=== PATIENT | male | born 1970 | race Two or more races ===

== ENCOUNTER 2024-04-07 18:16 | Emergency (ER) | payer BC, SELFPAY ==
[2024-04-07 18:21] VITALS: BP 153/93
[2024-04-07 19:00] LABS: Hematocrit 42.1 % (39.0-52.0); Hemoglobin 13.2 g/dL (13.0-18.0); Mean Corp Hgb Conc. 31.4 g/dL (33.0-37.0); Mean Corpuscular Hgb 27.8 pg (27.0-31.0); Mean Corpuscular Volume 88.8 fL (80.0-94.0); Mean Platelet Volume 11.1 fL (7.4-10.4); Platelet Count 201 10^3/uL (130-400); Red Blood Cell Count 4.74 10^6/uL (4.70-6.10); White Blood Cell Count 5.8 10^3/uL (4.8-10.8)
[2024-04-07 19:16] LABS: Troponin I < 0.012 ng/ml
[2024-04-07 19:18] LABS: % Basophils 0.9 % (0-2); % Eosinophils 4.5 % (0-6); % Immature Granulocytes 0.2 % (0-0.5); % Lymphocytes 54.6 % (20.5-51.1); % Monocytes 12.1 % (1.7-9.3); % Neutrophils 27.7 % (42.2-75.2); ALT (SGPT) 24 U/L (0-50); AST (SGOT) 23 U/L (17-59); Absolute Basophils 0.1 10^3/uL (0-0.2); Absolute Eosinophils 0.3 10^3/uL (0-0.7); Absolute Lymphocytes 3.2 10^3/uL (1.2-3.4); Absolute Monocytes 0.7 10^3/uL (0.1-0.6); Absolute Neutrophils 1.6 10^3/uL (1.4-6.5); Albumin 4.3 g/dl (3.5-5.0); Alkaline Phosphatase 62 U/L (38-126); Blood Urea Nitrogen 12 mg/dl (9-20); Calcium 9.4 mg/dl (8.4-10.2); Carbon Dioxide 25 mmol/L (22-30); Glucose 76 mg/dl (70-99); Nucleated Red Blood Cells % 0 % (-); Total Bilirubin 0.4 mg/dl (0.2-1.3); Total Protein 7.3 g/dl (6.3-8.2); eGFR > 60.00
[2024-04-07 19:47] LABS: Chloride 103 mmol/L (98-107); Sodium 136 mmol/L (135-145)
[2024-04-07 20:33] VITALS: BP 148/93
[2024-04-07 20:36] VITALS: BMI 28.7
--- NOTE | 2024-04-07 20:44 | ED.GENMED ---
History of Present Illness
General
Chief Complaint: Chest Pain
Source: patient
Exam Limitations: none
Time Seen by Provider: 04/07/24 20:21
History of Present Illness
History of Present Illness:
53yoM with a history of hyperlipidemia presenting for evaluation of chest pain. Patient reports a squeezing chest discomfort on the right upper chest for the past 2 weeks or so. Pain waxes and wanes. Pain does seem to worsen with activity. He is
also having some shortness of breath with walking up steps. Today he noticed a pins and needle sensation in his right hand which improves if he keeps his right arm elevated. He denies any shortness of breath or leg swelling. He takes naproxen for
his back which does not seem to help his chest pain. Of note, his mother unexpectedly at the age of 55. No autopsy was performed but his mother was reportedly complaining of chest pain before she . He was told by his PCP recently that
his LDL cholesterol was elevated but he does not take any medications for this. No tobacco use.
Past History
Past History
ED Past Medical History: None
ED Past Surgical History: None
Social History
Tobacco: Non-smoker
Alcohol: None
Drug: None
Personal:
Living: with family
Employment: Employed
Family History
Family History: Sudden (mother < 55)
Phy Exam
General Physical Exam
General Presentation: well appearing and no apparent distress
General age: appears stated age
General Skin: warm and dry
General Habitus: normal
General Mental: alert
ENT Exam
ENT Exam: normocephalic
Cardiovascular Exam
Cardiovascular Exam: regular rate/rhythm, no edema, no murmur and normal peripheral pulses (2+ radial and DP pulses bilaterally)
Pulmonary Exam
Pulmonary Exam: lungs clear, no respiratory distress, no rales, no crackles and no rhonchi
Neurological Exam
Neurological Exam: alert
Emily Coma Scale
Eye Opening: Spontaneous
Verbal Response: Oriented
Motor Response: Obeys Commands
GCS Total Score: 15
Skin Exam
Skin Exam: normal color and warm/dry
Psychiatric Exam
Psychiatric Exam: normal mood/affect
Scores
Heart Score for Chest Pain Patients
STEMI patient?: No
History: Moderately Suspicious
ECG: Normal
Age: >45 - <65 years
Risk Factors: 1 or 2 Risk Factors
Troponin: </= Normal Limit
Heart Score for Chest Pain Patients: 3
Heart Score Risk: 2.5% MACE over next 6 weeks
Course
Orders/Labs/Results
Orders:
Orders
04/07/24 18:17
Electrocardiogram (*1) Urgent
Reason for Study: Chest Pain
EKG- Treatment ONCE
04/07/24 18:37
Complete Blood Count/With Diff Urgent
Comprehensive Metabolic Panel Urgent
Troponin I Urgent
04/07/24 20:23
CR Chest - 2 Views Urgent
Comment:
Reason For Exam: CP
04/07/24 20:43
Cardiac Monitoring- Treatment ONCE
04/07/24 20:57
D-Dimer Urgent
Abnormal Lab Results
04/07/24
18:37
MCHC 31.4 L g/dL
(33.0-37.0)
MPV 11.1 H fL
(7.4-10.4)
Absolute Monos (auto) 0.7 H 10^3/uL
(0.1-0.6)
Neutrophils % 27.7 L %
(42.2-75.2)
Lymphocytes % 54.6 H %
(20.5-51.1)
Monocytes % 12.1 H %
(1.7-9.3)
04/07/24 18:37
04/07/24 18:37
Vital Signs
Initial and Last Documented VS:
Initial Vital Signs
Pulse Resp BP Pulse Ox
72 16 153/93 100
04/07/24 18:21 04/07/24 18:21 04/07/24 18:21 04/07/24 18:21
Last Documented Vital Signs
Pulse Resp BP Pulse Ox
51 12 107/59 100
04/07/24 21:45 04/07/24 21:45 04/07/24 21:00 04/07/24 21:15
MDM/Problems Addressed
Differential Diagnosis Includes:
53yoM here with R sided chest pain x 2 weeks. Worsens with activity. Also c/o R hand paresthesias that are positional. Hx of HLD not on medications. He is mildly hypertensive with otherwise normal vital signs. He is well-appearing in no acute
distress. Exam is reassuring. Differential diagnosis includes but is not limited to: ACS, angina, PE, pneumonia, musculoskeletal
Initial ED plan: Cardiac labs and EKG obtained in triage. EKG shows normal sinus rhythm without ischemic changes and troponin within normal limits. Will check D-dimer and chest x-ray.
*EKG
Interpreted by ED Provider?: Yes
EKG Intrepretation Date: 04/07/24
Heart Rate: 72
Rate: normal
Rhythm: sinus
[place]: normal axis
Interval: normal interval
QRS Pattern: normal QRS
Ischemia: no ischemia
*Critical Care Note
Total Time (30-74mins, 75-104mins- exclusive of procedures): Not Applicable
Update Note
Update Note:
D-dimer normal making PE very unlikely. Chest x-ray is clear without acute findings. No indication for hospitalization at this time. Will discharge patient with follow-up with chest pain hotline. Strict ED return precautions discussed. Patient
in agreement with plan and was discharged in stable condition.
ED Attending Note
-
Portions of this chart may have been created with voice recognition software.� Occasional wrong word or��sound alike� substitutions may have occurred due to the inherent limitations of voice recognition software.
Discharge Plan
Departure
Patient Disposition: Home (Routine Discharge)
Date of Disposition: 04/07/24
Time of Disposition: 22:13
Patient with high blood pressure during this ER visit?: Yes
Discharge Problem:
Chest pain
Instructions: Chest Pain DCA Follow Up
Prescriptions:
No Action
No Current Medications
0
Referrals:
Gerardo Birmingham MD [Active] -
Anirudh Escamilla MD [Family Provider] -
Activity Restrictions/Additional Instructions:
Please call tomorrow to schedule a follow-up with your family doctor and cardiology. Return to the ER with any new or worsening symptoms.
Interventions
Interventions:
*Risk Screen - Suicide Last Done: 04/07/24 20:36
*General Assessment Last Done: 04/07/24 20:36
*Neglect/Abuse Screening Last Done: 04/07/24 20:36
ED- Fall Risk Assessment Last Done: 04/07/24 20:25
*ED COVID-19 Vaccine History Last Done: 04/07/24 20:59
ED- Cardiac Assessment Last Done: 04/07/24 20:35
Discharge Date and Time
Print Language: NEPALI
[2024-04-07 21:00] VITALS: BP 107/59
[2024-04-07 21:15] LABS: D-Dimer 0.33 ug/mlFEU (0.00-0.50)
== END 2024-04-07 22:24 | disposition home or self-care (01) ==
LOC: EMR 18:16
PROVIDERS: Emergency Medicine; Physician Assistant; EMERGENCY PHYSICIAN Emergency Medicine; FAMILY PHYSICIAN Family Medicine
DX: R07.89 Other chest pain (principal); R20.2 Paresthesia of skin; E78.5 Hyperlipidemia, unspecified
CPT/HCPCS: 99285; 71046; 80053; 84484; 85025; 85379; 93005